=== PATIENT | male | born 1935 | race Caucasian/White ===

== ENCOUNTER → 2020-05-06 | Outpatient (CLI) | payer OTHER | LOC: SJCVC 11:52 | PROVIDERS: ATTEND Internal Medicine Cardiovascular Disease | DX: I44.0 Atrioventricular block, first degree (principal); R53.83 Other fatigue; I25.810 Atherosclerosis of coronary artery bypass graft(s) without angina pectoris; I45.10 Unspecified right bundle-branch block; I10 Essential (primary) hypertension; E78.00 Pure hypercholesterolemia, unspecified; I65.23 Occlusion and stenosis of bilateral carotid arteries; Z79.82 Long term (current) use of aspirin; Z79.899 Other long term (current) drug therapy; Z82.49 Family history of ischemic heart disease and other diseases of the circulatory system; Z95.1 Presence of aortocoronary bypass graft ==

== ENCOUNTER → 2020-05-13 | Outpatient (CLI) | payer OTHER ==
[~2020-05-13] VITALS: Ht 172.7 cm; Wt 67.6 kg
[~2020-05-13] MED LIST: ARICEPT10 M1 PO; ASA81BEC PO; BENTYL 10 MG CA10 M1 PO; FISH OIL 1,001000 M3 PO; LIPITOR40 MG PO; NAMENDA 5 MG TAB5 M1 PO; NEXIUM20 M1 PO; PAMELOR50 MG PO; SUPER THERAVIT1 EACH PO; SYNTHROID75 MCG PO; TOPROL XL25 MG PO
[2020-05-13 07:26] VITALS: BP 153/76
[2020-05-13 07:47] LABS: ABSOLUTE NEUTROPHILS 3.4 thou/uL (1.4-8.2); BASOPHILS 0.6 % (0.0-2.0); EOSINOPHILS 4.6 % (0.0-3.0); HEMATOCRIT 39.9 % (42.0-52.0); HEMOGLOBIN 13.7 gm/dL (14.0-18.0); MCHC 34.3 g/dL (28.0-37.0); MCV 96.3 fL (80.0-100.0); MONOCYTES 8.6 % (1.0-8.0); PLATELET COUNT 157 thou/uL (150-400); POLYS 55.2 % (36.0-66.0); RBC 4.14 mil/uL (4.50-6.00); RDW 13.7 % (10.5-14.5); WBC 6.1 thou/uL (4.0-11.0)
[2020-05-13 07:53] LABS: CALCIUM 9.2 mg/dL (8.5-10.1); CREATININE 1.4 mg/dL (0.7-1.3)
--- NOTE | 2020-05-13 08:21 | EKG ---
[facility] [address] ELECTROCARDIOGRAM REPORT Name: NICHOL RUDDMAXINE Bunch Room #: [facility]#: [id number] Admission: 05/13/20 Attend Phys: Vitor Taveras MD, Discharge: Date of : 35 Report #: [id number] THIS REPORT FOR: cc: Martin Burciaga James L. DO Lundgren, Craig H. MD [facility] THIS REPORT FOR: //name// [facility] Test Date: 2020-05-13 Test Time: 07:15:21 Pat Name: PERLA RUDD Department: Room: Gender: [place]ra [place]ta Setter: [facility] : 1935 Requested By: Vitor Taveras Order Number: [id number] MD: Alex Ann Measurements Intervals Henrietta Rate: 67 P: -4 UT: 247 QRS: -36 QRSD: 110 T: 65 QT: 418 QTc: 442 Interpretive Statements Sinus rhythm Prolonged UT interval Left axis deviation RSR' in V1 or V2, probably normal variant Compared to ECG 03/15/2008 06:35:04 First degree AV block now present Left-axis deviation now present Sinus tachycardia no longer present Poor R-wave progression no longer present ST (T wave) deviation no longer present Electronically Signed On 05-13-2020 8:20:51 CDT by Alex Ann [email or web address] <ELECTRONICALLY SIGNED> By: Alex Ann MD, [facility] 05/13/20819 4 4 Alex Ann MD, [facility] /EPI
--- NOTE | 2020-05-13 15:04 | CATHLAB ---
[facility] [place] [address] INVASIVE PROCEDURE REPORT Name: PERLA RUDD Room #: REG SARAH Terence#: [id number] Admission: 05/13/20 Attend Phys: Vitor Taveras MD, Discharge: Date of : 35 Report #: [id number] THIS REPORT FOR: cc: Martin Burciaga James L. DO Mancuso, Gerald M. MD [facility] ~ APPROVED REPORT Study performed: 05/13/2020 07:33:25 Patient Details The patient is a 84 year-old male Event Personnel Vitor Taveras State Inspector, Susannah Hale RN RN, Latisha Reed RTR, Golden Serna Sherra RTR Monitor, Larry Downs RTR Monitor Procedures Performed Art Access - R femoral artery* Jose Luis Access - R femoral vein Right and Left Heart Cath Lt Vent/Cors/Grafts [id number] RLLVCORCAB 07744 Initial Mod Sed Same Phys/QHP Gr5y 215001 37626 Mod Sed Same Phys/QHP Ea 690324 Hemostasis with Manual pressure Hemostasis w/ Mynx Indication Chest pain Procedure Narrative The Right Groin^ was infiltrated with 1% Lidocaine subcutaneous anesthesia. A Right Heart Catheterization was performed with a 7 Fr. Jet-Padmini catheter and pressure were recorded. Cardiac outputs were obtained by the Rob and Thermal Dilution method. A PINNACLE 6FR Sheath #[id number] sheath was inserted into the RFA^. Coronary angiography was performed using coronary diagnostic catheters. The right coronary system was accessed and visualized with a JR4 catheter. The left coronary system was accessed and visualized with a JL4 catheter. The left ventricle was accessed and visualized with a PIGTAIL catheter. Left ventriculogram was performed in 30 degree projection. An aortogram of the abdominal aorta was performed. Pre-demployment femoral angiogram was performed . Closure device was deployed with a 6 Fr MYNXGRIP 6/7F #[id number]. Hemostasis was obtained with manual pressure following sheath removal without any complications. The patient tolerated the procedure well and there [address] [address] INVASIVE PROCEDURE REPORT Name: PERLA RUDD Room #: [facility]#: [id number] Admission: 05/13/20 Attend Phys: Vitor Taveras, Discharge: Date of : 35 Report #: [id number] were no complications associated with the procedure. There was no hematoma. Intraoperative Conscious Sedation Sedation start time: 848 Case end Time: 931 Fentanyl 100 mcg Versed 2 mg Fluoro Time: 5.10 minutes Dose: DAP 6942.90 cGycm2 823 mGy Contrast Type and Amount: Visipaque 110 ml Hemodynamics The right atrial mean pressure is 22 mmHg. The right ventricular pressure is 41/12 mmHg. The pulmonary artery pressure is 44/17 mmHg with a mean of 27 mmHg. The mean pulmonary capillary wedge pressure is 20 mmHg. The aortic pressure is 134/70 mmHg with a mean of 94 mmHg. The left ventricular pressure is 133/10 mmHg with a mean of mmHg. The left ventricular end diastolic pressure is 17 mmHg. The cardiac output using thermo method is 3.40 L/min. The cardiac index using thermo method is 1.88 L/min/m2. Conclusion #1. Successful right heart catheterization with cardiac output by thermodilution. See above hemodynamics. #2 normal left ventricular size and systolic function normal EF 55 to 60%. #3 abdominal aortogram revealing mild aortic ectasia small right iliac aneurysm no flow-limiting stenosis. No abdominal aneurysm. #4 LAD is mildly disease giving rise to LAD and circumflex. 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 This distal half of the vessel fills via a SNELL graft competitively via the mcgrath system. #6 the SNELL to LAD is intact with mild irregularities. Competitively filling the distal half of the LAD which is a wraparound LAD. This SNELL catheter appears to have a jump graft to a small OM system. Competitively filling this OM system. #7 nondominant circumflex artery is moderately diseased but is fills competitively via a jump graft off of the SNELL. #8 dominant right coronary is an eccentric mid vessel lesion of 80 to 90% filling a posterior lateral branch and an occluded PDA. #9 tortuous vein graft to the PDA is intact with minimal irregularity briskly filling the PDA which is preserved and some retrograde competitive filling of the posterior lateral branch. Recommendations and plan: Continue aggressive risk factor [facility] [address] [place] [address] INVASIVE PROCEDURE REPORT Name: PERLA RUDD Room #: REG [facility]#: [id number] Admission: 05/13/20 Attend Phys: Vitor Taveras, Discharge: Date of : 35 Report #: [id number] modification. I do not make any changes in the current regimen. No indication for coronary intervention. Some moderate fluid restriction for mild elevation of pulmonary pressures noted above. <ELECTRONICALLY SIGNED> By: Vitor Taveras MD, FAC 05/13/20 1504 1504 1504 Vitor Taveras MD, FACC /INF
== END | disposition home or self-care (01) ==
LOC: CATH 06:43
PROVIDERS: ATTEND Internal Medicine Cardiovascular Disease
DX: R07.9 Chest pain, unspecified (principal); I25.10 Atherosclerotic heart disease of native coronary artery without angina pectoris; I77.811 Abdominal aortic ectasia; I72.3 Aneurysm of iliac artery; I10 Essential (primary) hypertension; E78.5 Hyperlipidemia, unspecified; E78.00 Pure hypercholesterolemia, unspecified; K21.9 Gastro-esophageal reflux disease without esophagitis; Z98.890 Other specified postprocedural states; Z79.899 Other long term (current) drug therapy; Z95.1 Presence of aortocoronary bypass graft; Z85.46 Personal history of malignant neoplasm of prostate; Z87.442 Personal history of urinary calculi; Z98.41 Cataract extraction status, right eye; Z98.42 Cataract extraction status, left eye; Z88.8 Allergy status to other drugs, medicaments and biological substances